=== PATIENT | female | born 1985 | race African-American/Black ===

== ENCOUNTER → 2021-07-11 | Day surgery (SDC) | payer OTHER ==
[2021-07-08 13:47] LABS: Hemoglobin 12.7 g/dL (12.0-15.5); Mean Corpuscular HGB CONC 31.8 g/dL (32.0-36.0); Mean Corpuscular Hemoglobin 28.1 pg (27.0-33.0); Mean Corpuscular Volume 88.5 fl (81.6-98.3); Mean Platelet Volume 10.4 fl (7.4-10.4); Platelet Count 194 10x3/uL (150-450); RBC Distribution Width 14.7 % (11.5-14.5); Red Blood Cell (RBC) Count 4.52 10x6/uL (3.90-5.03); White Blood Cell (WBC) Count 4.4 10x3/uL (3.5-10.5)
[2021-07-08 16:33] VITALS: BMI 54.9
[2021-07-09 19:54] LABS: SARS-CoV-2 PCR by NAA Not Detected (NotDetected)
[~2021-07-11] MED LIST: Dexamethasone 20 MG/5 ML VIAL ONE; Fentanyl 100 MCG/2 ML VIAL ONE; Ketorolac Tromethamine 30 MG/ML VIAL ONE; Lidocaine 1% MPF 2 ML VIAL ONE; Misoprostol 200 MCG TAB ONE; Ondansetron PF 4 MG/2 ML Vial ONE; PROPOFOL 40 ML ONE; cefTRIAXone\\ROCEPHIN 1 GM VIAL ONE
[2021-07-11 13:12] LABS: Hemoglobin 12.3 g/dL (12.0-15.5); Mean Corpuscular HGB CONC 32.5 g/dL (32.0-36.0); Mean Corpuscular Hemoglobin 28.3 pg (27.0-33.0); Mean Corpuscular Volume 86.9 fl (81.6-98.3); Platelet Count 193 10x3/uL (150-450); RBC Distribution Width 14.6 % (11.5-14.5); Red Blood Cell (RBC) Count 4.35 10x6/uL (3.90-5.03); White Blood Cell (WBC) Count 3.8 10x3/uL (3.5-10.5)
== END | disposition home or self-care (01) ==
LOC: CSHSDC 11:46
PROVIDERS: ATTEND Obstetrics & Gynecology
PROC: 10D17ZZ Extraction of Products of Conception, Retained, Via Natural or Artificial Opening (ICD-10-PCS; principal; 2021-07-11)
DX: O02.1 Missed abortion (principal); O08.1 Delayed or excessive hemorrhage following ectopic and molar pregnancy; J45.909 Unspecified asthma, uncomplicated; K21.9 Gastro-esophageal reflux disease without esophagitis; Z79.899 Other long term (current) drug therapy; Z88.6 Allergy status to analgesic agent; Z88.8 Allergy status to other drugs, medicaments and biological substances
CPT/HCPCS: 84702; 85027; 86850; 86900; 86901; 88305; J0696; J1100; J1885; J2405; J2704; J3010; U0003; U0005